=== PATIENT | male | born 1995 | race African-American/Black ===

== ENCOUNTER 2020-08-14 15:24 | Emergency (ER) ==
[~2020-08-14] VITALS: Ht 170.2 cm; Wt 68.2 kg
[2020-08-14] MEDS ORDERED: ZOFRAN ODT4 MG PO (17:24)
== END 2020-08-14 17:38 | disposition home or self-care (01) ==
LOC: COL.ER 15:24
DX: U07.1 COVID-19 (principal)

== ENCOUNTER 2020-10-11 18:25 | Emergency (ER) | payer SELFPAY ==
[~2020-10-11] VITALS: Ht 170.2 cm; Wt 68.2 kg
[~2020-10-11 18:25] MED LIST: ZOFRAN ODT4 MG PO
[2020-10-11 18:26] VITALS: TEMP 98.4
[2020-10-11] MEDS ORDERED: CEPHALEXIN500 M1 PO (19:07)
[2020-10-11 20:19] VITALS: BP 130/76; PULSE 91
== END 2020-10-11 20:21 | disposition home or self-care (01) ==
LOC: COL.ER 18:25
DX: S51.832A Puncture wound without foreign body of left forearm, initial encounter (principal); Z88.0 Allergy status to penicillin; X99.8XXA Assault by other sharp object, initial encounter

== ENCOUNTER → 2020-10-19 | Outpatient (CLI) | payer SELFPAY ==
[~2020-10-19] MED LIST changes: +CEPHALEXIN500 M1 PO; +MOTRIN 800800 MG/TAB PO
[2020-10-19 15:14] VITALS: BP 116/78; PULSE 58; TEMP 98.4
== END ==
LOC: COL.ER 14:29
DX: Z48.02 Encounter for removal of sutures (principal)

== ENCOUNTER 2020-10-21 22:11 | Emergency (ER) | payer SELFPAY ==
[~2020-10-21] VITALS: Ht 170.2 cm; Wt 68.2 kg
[~2020-10-21 22:11] MED LIST changes: -MOTRIN 800800 MG/TAB PO
[2020-10-22 00:17] LABS: BASO % 0.5 % (0.0-2.0); EOS # 0.4 (0.0-0.7); EOS % 7.2 % (0-4.0); GRAN # 1.7 (1.4-6.5); GRAN % 27.7 % (42.2-75.2); HEMOGLOBIN 11.7 g/dl (13.5-18.0); LYMPH # 3.4 (1.2-3.4); LYMPH % 56.5 % (20.0-51.0); MEAN CELL VOLUME 86 fl (80.0-100.0); MEAN CORPUSCULAR HEMOGLOBIN 28 pg (27.0-31.0); MEAN CORPUSCULAR HGB CONC 32 g/dl (33.0-37.0); MEAN PLATELET VOLUME 11.7 fl (7.4-10.4); MONO # 0.5 (0.1-0.6); MONO % 7.9 % (1.7-9.3); PLATELET COUNT 162 K/mm3 (130-400); RED BLOOD COUNT 4.21 M/mm3 (4.20-5.60); REDCELL DISTRIBUTION WIDTH-CV 14.1 % (11.5-14.5)
[2020-10-22 00:18] LABS: HEMATOCRIT 36.1 % (42.0-52.0)
[2020-10-22 00:20] LABS: ALBUMIN 3.9 gm/dL (3.5-5.0); BILIRUBIN,TOTAL 0.4 mg/dL (0.0-1.0); CALCIUM 8.9 mg/dL (8.4-10.2); CREATININE, serum 0.9 (0.66-1.25); POTASSIUM 3.8 mmol/L (3.4-5.0); TOTAL PROTEIN 6.7 gm/dL (6.4-8.2)
[2020-10-22] MEDS ORDERED: MOTRIN 800800 MG/TAB PO (00:52)
[2020-10-22 01:14] VITALS: BP 118/64; PULSE 62; TEMP 98.7
== END 2020-10-22 01:15 | disposition home or self-care (01) ==
LOC: COL.ER 22:11
PROVIDERS: Personal Emergency Response Attendant
DX: B34.9 Viral infection, unspecified (principal); F17.200 Nicotine dependence, unspecified, uncomplicated; Z20.822 Contact with and (suspected) exposure to COVID-19
CPT/HCPCS: J0780; J1885; J7030